=== PATIENT | female | born 1940 | race Caucasian/White ===

== ENCOUNTER 2023-06-28 12:55 | Outpatient (AMB) | payer MEDICARE, SELFPAY ==
--- NOTE | 2023-06-28 12:56 | A.OFFVIS_ITS ---
Vital Signs 06/28/23 13:00 Height 5 ft 4 in Weight 185 lb BMI 31.8 BP 116/61 Blood Pressure Location Lt brachial Position Sitting Pulse 53 Intake Visit Reasons: full incontinence of feces Intake Note: Elma presents in the office as a new patient. CC: She states that she has generalized bowel issues with incontinence. Allergies shellfish derived Allergy (Mild, Verified 06/28/23 13:00) Rash Medication List - Last Reconciled 06/28/23 by Tara Donnelly PA-C acetaminophen (Tylenol) 325 mg PO QID PRN citalopram 20 mg PO DAILY docusate sodium (Colace) 100 mg PO DAILY fluoride (sodium) 1.1% 1 appl dental BEDTIME hydrochlorothiazide 25 mg PO Q OTHER DAY levothyroxine 100 mcg PO DAILY levothyroxine 88 mcg PO DAILY lorazepam 0.5 mg PO BEDTIME PRN losartan 25 mg PO DAILY nystatin 1 appl topical DAILY oxycodone ER (OxyContin) 10 mg PO BID HPI Comments Details: 82-year-old female referred with fecal incontinence- alternating stool pattern- She has been seen by at least 5 providers for her bowels- She says bowel problems for many years alternating stool pattern- followed by [facility]- seen there about 2 years ago- had a normal colonoscopy per her report Seen by PCP, homeopathic-[facility]- went to [place]- seen by psych/ [facility] combined [facility]- Seen by [facility] for pelvic floor dysfunction- there is an issue but no surgical intervention at this time She had taken Linzess-and Amitiza- causing fecal incontinence She has 4-5 day cycle- of constipation- uses colace, miralax, prunes other laxatives- then she has a couple days of diarrhea- She tried metamucil- gave her gas Tries to eat high fiber- Appetite is very good She is stressed out- has been for years- sees a psycholgist. She thinks about her bowels-alot- then her pattern is all over the place She uses- lomotol, then miralax or enema- She take oxy at night for sleep- sciatica Also aprazolam- at night- prn- She had blood work she reports as normal No N/V/ abdominal pain- fever or chills-no bleeding PFSH Surgical History Hx of hysterectomy Hx of colonoscopy Social History (Updated 06/28/23 @ 13:31 by Tara Donnelly PA-C) Household Members Other:: lives with friend Alcohol intake: never Patient Tobacco Use Status: Never used Tobacco Review of Systems Const All systems reviewed & are unremarkable except as noted in HPI and below Card Denies chest pain and Denies dyspnea Resp Denies dyspnea Physical Exam Vital Signs: Last Vital Signs Pulse 53 06/28/23 13:00 BP 116/61 06/28/23 13:00 BMI result Body Mass Index 31.8 Const General: healthy appearing and comfortable Orientation/consciousness: patient oriented x3 Eyes Sclerae: sclerae normal Resp Effort & Inspection: normal respiratory effort and able to speak in complete sentences Auscultation: clear to auscultation bilaterally, no rales, no rhonchi and no wheezes Cardio Rate: regular rate Rhythm: regular rhythm Heart sounds: S1 normal heart sound present and S2 normal heart sound present GI Palpation (GI): Soft to palpation and nontender Auscultation: normal bowel sounds Neuro General: patient oriented x3 Psych Appearance: grossly normal and well kempt Speech and movement: Pressured speech present Affect: Anxious affect present Attitude: cooperative Thought content: Normal thought content present Results Reviewed Results Reviewed: GI referral Assessment & Plan Assessment & Plan (1) IBS (irritable bowel syndrome): Comment: She may have functional component-extremely anxious, pressured speech-not well focused She needs to have a consistent regimen- Code(s): K58.9 - Irritable bowel syndrome without diarrhea Category: Medical Plan: Consistent bowel regimen Medications: New methylcellulose (laxative) (Citrucel) 500 mg PO BID PRN 60 tabs 5RF constipation 30 days Patient Instructions: hold all other OTC bowel preps Citrucel 500 mg tab bid HFD well hydrate- Be consistent Discussed anxiety with PCP-may benefit from psycho therapy Monitor Daily food diary Encouraged to call with any questions or concerns, or change in symptom Coding Level of Care Code New Pt Level 4 (22841) Diagnoses IBS (irritable bowel syndrome) K58.9 Time Spent (min) 40 Comment 6th opinion
[2023-06-28 13:00] VITALS: BP 116/61; PULSE 53; BMI 31.8
== END 2023-06-28 13:54 | disposition home or self-care (01) ==
PROVIDERS: PCP Nurse Practitioner Family; Visit Provider Physician Assistant
DX: K58.9 Irritable bowel syndrome, unspecified (principal)
CPT/HCPCS: 99204

== ENCOUNTER → 2023-06-28 12:55 | Outpatient (BNVA) | payer MEDICARE, SELFPAY | PROVIDERS: PCP Nurse Practitioner Family; Visit Provider Physician Assistant | DX: K58.9 Irritable bowel syndrome, unspecified (principal) | CPT/HCPCS: 99202 ==